=== PATIENT | female | born 1985 | race Caucasian/White ===

== ENCOUNTER 2016-07-31 13:12 | Emergency (ER) | payer OTHER ==
[~2016-07-31] VITALS: Ht 165.1 cm; Wt 50.0 kg
[~2016-07-31 13:12] MED LIST changes: -ASPI325T39 PO
[2016-07-31 13:22] VITALS: TEMP 36.5; Ht 165.1 cm; Wt 50.0 kg
[2016-07-31] MEDS ORDERED: SODIUM CHLORIDE 0.9% 1000ML 1,000 ML IV STA (14:10)
[2016-07-31 14:28] VITALS: O2SAT 100
--- NOTE | 2016-07-31 14:48 | DIAGNOSTIC IMAGING REPORT ---
CHEST ONE VIEW PORTABLE HISTORY: Atypical chest pain. Palpitations. COMPARISON: Chest 12/04/2015. FINDINGS: The lungs are clear. Cardiac silhouette is normal in size. No pleural effusions. No pneumothorax. IMPRESSION: No acute process. Electronically signed by: Tashi Duran M.D. 07/31/2016 2:47 PM Dictated Date/Time: 07/31/2016 2:42 PM
[2016-07-31 15:08] LABS: URINE APPEARANCE CLEAR (CLEAR); URINE BILIRUBIN NEG (NEG); URINE COLOR YELLOW; URINE NITRITE NEG (NEG); URINE PH 8.5 (4.5-7.5); URINE SPECIFIC GRAVITY 1.006 (1.000-1.030); UROBILINOGEN NEG (NEG); ZZUR CULT IF INDIC CLEAN CATCH NO
[2016-07-31 15:10] LABS: MANUAL MICROSCOPIC REQUIRED? NO; REVIEW REQ? NO
[2016-07-31 15:11] LABS: BASO % 0.3 %; BASO ABS # 0.03 K/uL (0-0.2); COMPLETE YES; EOS % 0.1 %; HEMATOCRIT 42.9 % (37-47); IG% 0.2 %; LYMPH % 17.3 %; LYMPH ABS # 1.73 K/uL (1.2-3.4); MEAN CORPUSCULAR HEMOGLOBIN 29.7 pg (25-34); MEAN CORPUSCULAR HGB CONC 34.5 g/dl (32-36); MEAN PLATELET VOLUME 10.3 fL (7.4-10.4); MONO % 5.3 %; NEUT % 76.8 %; PLATELET COUNT 234 K/uL (130-400); RED BLOOD COUNT 4.99 M/uL (4.2-5.4)
[2016-07-31] MEDS ORDERED: ASPI325T39 PO (15:11)
[2016-07-31 15:31] LABS: ALT/SGPT 19 U/L (12-78); BLOOD UREA NITROGEN 11 mg/dl (7-18); BUN/CREATININE RATIO 14.8 (10-20); CALCIUM 9.3 mg/dl (8.5-10.1); CARBON DIOXIDE 24 mmol/L (21-32); CHLORIDE 106 mmol/L (98-107); CREATININE 0.75 mg/dl (0.60-1.20); GLUCOSE 100 mg/dl (70-99); MAGNESIUM 1.9 mg/dl (1.8-2.4); POTASSIUM 3.6 mmol/L (3.5-5.1); SODIUM 142 mmol/L (136-145)
[2016-07-31 15:35] LABS: PROTHROMBIN TIME (PATIENT) 10.5 SECONDS (9.0-12.0)
[2016-07-31 15:41] LABS: ALB/GLOB RATIO 1.3 (0.9-2); ALKALINE PHOSPHATASE 59 U/L (45-117); AST/SGOT 17 U/L (15-37)
[2016-07-31 16:33] LABS: BENZODIAZEPINE, URINE NEG (NEG); COCAINE,URINE NEG (NEG); PHENCYCLIDINE, URINE NEG (NEG)
[2016-07-31 16:37] VITALS: BP 119/84; PULSE 107; O2SAT 98
--- NOTE | 2016-07-31 17:19 | EMERGENCY ROOM VISIT NOTE ---
History First contact with patient: 13:51 Chief Complaint: ANXIETY Stated Complaint: CHEST DISCOMFORT/PALPITATIONS History of Present Illness The patient is a 31 year old female who presents to the Emergency Department via EMS for evaluation of chest pain or palpitations and near syncope. She reports that she's had ongoing issues with palpitations and pain occasionally to the LEFT-sided chest. She reports that she was evaluated by her primary care provider as well as pulmonology. She had pulmonary function testing performed as well as a chest x-ray which were unremarkable. This was back in December of this past year. She was on anti-anxiety medication, but has not been on his medications for the last 6 months. She reports that she was feeling well today until she developed palpitations and lightheadedness. She felt as though she was going to pass out. She laid down, however her symptoms do not resolve. She contacted her and then elected to call 911. She reports that she has had occasional episode of tightness in her chest as well as palpitations. The near syncope is new. She reports she is uncertain if this is related to anxiety or not. She denies any recent substance abuse, alcohol use, or other new medications. She denies any recent caffeine use. The patient reports some mild chest tightness rating her pain a 2/10. She reports no smoking history. She denies recent long distress. She does not use control. There is no family history of blood clots or bleeding disorders. Review of Systems A complete 10-point Review of Systems was discussed with the patient, with pertinent positives and negatives listed in the History of Present Illness. All remaining Review of Systems questions can be considered negative unless otherwise specified. Social History Smoking Status: Former Smoker Alcohol Use: occasionally Drug Use: none Marital Status: Housing Status: lives with significant other Occupation Status: employed Current/Historical Medications Miscellaneous Medications Aspirin (Aspirin Ec), 325 MG PO Allergies Coded Allergies: Bacitracin (Verified Allergy, Unknown, Itchy Rash, 07/31/16) Dust (Verified Allergy, Unknown, Watery Eyes, Achey, Chilly, 07/31/16) Neomycin (Verified Allergy, Unknown, Itchy Rash, 07/31/16) Polymyxin B (Verified Allergy, Unknown, Itchy Rash, 07/31/16) Physical Exam Vital Signs Date Time Temp Pulse Resp B/P Pulse Ox O2 Delivery O2 Flow Rate FiO2 07/31/16 16:37 92 124/62 98 100 122/81 107 119/84 07/31/16 14:37 82 123/72 100 108 131/75 120 128/85 07/31/16 14:28 100 07/31/16 13:29 89 07/31/16 13:22 36.5 105 17 143/75 100 Room Air Pain Rating (0-10): 2 Physical Exam VITAL SIGNS - Vital signs and nursing notes were reviewed. GENERAL - 31-year-old female appearing her stated age who is in no acute distress. Communicates well with provider and answers questions appropriately. HEAD - NC/AT. EYES - PERRL with EOMI bilaterally. Sclera anicteric. Palpebral conjunctiva pink and moist with no injection noted. EARS - No deformities of external structures noted on gross examination bilaterally. No pain elicited with palpation of the tragus bilaterally. External auditory canals without discharge or otorrhea. Tympanic membranes pearly chapman without retraction or bulging. NOSE - Midline and without cyanosis. No epistaxis or purulent drainage noted. Septum midline without deviation or septal hematoma noted. MOUTH/OROPHARYNX - Without perioral cyanosis. Buccal mucosa pink and moist and without leukoplakia. Tongue midline with equal elevation of palate bilaterally. No tonsillar hypertrophy, erythema, or exudates noted. Good dentition noted. NECK - Neck with FROM. Supple to palpation. LUNGS - Chest wall symmetric without accessory muscle use, intercostals retractions, or central cyanosis. Normal vesicular breath sounds CTA B/L. No wheezes, rales, or rhonchi appreciated. CARDIAC - RRR with S1/S2. No murmur, rubs, or gallops appreciated. No reproducible tenderness to palpation appreciated over the anterior chest wall. ABDOMEN - Abdominal contour flat and without pulsations or visible masses. BS normoactive all four quadrants. No tenderness, palpable masses, hepatosplenomegaly, or ascites noted. EXTREMITIES - No clubbing or peripheral cyanosis. No pretibial edema present. +3 /5 radial and dorsalis pedis pulses palpated throughout. +5/5 strength noted in UE/LE bilaterally. NEUROLOGIC - Cranial nerves II through XII grossly intact. Sensory intact to light touch throughout. PSYCH - A&Ox3 and cooperates fully with examiner. Pt is very pleasant and interacts well with examiner. Medical Decision & Procedures ER Provider Diagnostic Interpretation: Radiological imaging and reports were reviewed by myself. Radiologist's Interpretation as follows: CHEST ONE VIEW PORTABLE HISTORY: Atypical chest pain. Palpitations. COMPARISON: Chest 12/04/2015. FINDINGS: The lungs are clear. Cardiac silhouette is normal in size. No pleural effusions. No pneumothorax. IMPRESSION: No acute process. Laboratory Results 07/31/16 14:40 Red Blood Count 4.99, Mean Corpuscular Volume 86.0, Mean Corpuscular Hemoglobin 29.7, Mean Corpuscular Hemoglobin Concent 34.5, Mean Platelet Volume 10.3, Neutrophils (%) (Auto) 76.8, Lymphocytes (%) (Auto) 17.3, Monocytes (%) (Auto) 5.3, Eosinophils (%) (Auto) 0.1, Basophils (%) (Auto) 0.3, Neutrophils # (Auto) 7.68, Lymphocytes # (Auto) 1.73, Monocytes # (Auto) 0.53, Eosinophils # (Auto) 0.01, Basophils # (Auto) 0.03 07/31/16 14:40 Test 07/31/16 14:30 07/31/16 14:40 Urine Color YELLOW Urine Appearance CLEAR (CLEAR) Urine pH 8.5 (4.5-7.5) Urine Specific Crockett 1.006 (1.000-1.030) Urine Protein NEG (NEG) Urine Glucose (UA) NEG (NEG) Urine Ketones NEG (NEG) Urine Occult Blood NEG (NEG) Urine Nitrite NEG (NEG) Urine Bilirubin NEG (NEG) Urine Urobilinogen NEG (NEG) Urine Leukocyte Esterase NEG (NEG) Urine Test NEG (NEG) Urine Opiates Screen NEG (NEG) Urine Methadone, Qualitative NEG (NEG) Urine Barbiturates NEG (NEG) Urine Phencyclidine (PCP) Level NEG (NEG) Ur Amphetamine/Methamphetamine NEG (NEG) MDMA (Ecstasy) Screen NEG (NEG) Urine Benzodiazepines Screen NEG (NEG) Urine Cocaine Metabolite NEG (NEG) Urine Marijuana (THC) NEG (NEG) White Blood Count 10.00 K/uL (4.8-10.8) Red Blood Count 4.99 M/uL (4.2-5.4) Hemoglobin 14.8 g/dL (12.0-16.0) Hematocrit 42.9 % (37-47) Mean Corpuscular Volume 86.0 fL (80-100) Mean Corpuscular Hemoglobin 29.7 pg (25-34) Mean Corpuscular Hemoglobin Concent 34.5 g/dl (32-36) Platelet Count 234 K/uL (130-400) Mean Platelet Volume 10.3 fL (7.4-10.4) Neutrophils (%) (Auto) 76.8 % Lymphocytes (%) (Auto) 17.3 % Monocytes (%) (Auto) 5.3 % Eosinophils (%) (Auto) 0.1 % Basophils (%) (Auto) 0.3 % Neutrophils # (Auto) 7.68 K/uL (1.4-6.5) Lymphocytes # (Auto) 1.73 K/uL (1.2-3.4) Monocytes # (Auto) 0.53 K/uL (0.11-0.59) Eosinophils # (Auto) 0.01 K/uL (0-0.5) Basophils # (Auto) 0.03 K/uL (0-0.2) RDW Standard Deviation 40.3 fL (36.4-46.3) RDW Coefficient of Variation 12.8 % (11.5-14.5) Immature Granulocyte % (Auto) 0.2 % Immature Granulocyte # (Auto) 0.02 K/uL (0.00-0.02) Prothrombin Time 10.5 SECONDS (9.0-12.0) Prothromb Time International Ratio 1.0 (0.9-1.1) Activated Partial Thromboplast Time 25.3 SECONDS (21.0-31.0) Partial Thromboplastin Ratio 1.0 Anion Gap 12.0 mmol/L (3-11) Est Creatinine Clear Calc Drug Dose 85.0 ml/min Estimated GFR () 122.2 Estimated GFR (Non- 105.5 BUN/Creatinine Ratio 14.8 (10-20) Calcium Level 9.3 mg/dl (8.5-10.1) Magnesium Level 1.9 mg/dl (1.8-2.4) Total Bilirubin 0.4 mg/dl (0.2-1) Aspartate Amino Transf (AST/SGOT) 17 U/L (15-37) Alanine Aminotransferase (ALT/SGPT) 19 U/L (12-78) Alkaline Phosphatase 59 U/L (45-117) Total Creatine Kinase 71 U/L (26-192) Creatine Kinase MB < 0.5 ng/ml (0.5-3.6) Creatine Kinase MB Ratio (0-3.0) Total Protein 8.1 gm/dl (6.4-8.2) Albumin 4.6 gm/dl (3.4-5.0) Globulin 3.5 gm/dl (2.5-4.0) Albumin/Globulin Ratio 1.3 (0.9-2) Lipase 271 U/L (73-393) Thyroid Stimulating Hormone (TSH) 2.080 uIu/ml (0.300-4.500) Medications Administered Medications (Trade) Dose Ordered Sig/Cesar Route Start Time Stop Time Status Last Admin Dose Admin Sodium Chloride (Nss 1000ml) 1,000 ml @ 125 mls/hr Q8H STAT IV 07/31/16 14:10 07/31/16 18:02 DC 07/31/16 14:10 125 MLS/HR Procedure Patient was placed on the sign letterer and monitored throughout the entire extent of their stay. In addition, the patient's pulse oximetry was monitored throughout the entire stay. Any abnormalities or aberrancies were addressed appropriately. ECG Indication: syncope Rate (beats per minute): 91 Rhythm: normal sinus Findings: nonspecific-ST abn (Inferior), prolonged QT, no ectopy Comparison ECG Date: Repeat EKG at 16:[address] changes inferiorly and laterally. ED Course Patient was seen and evaluated by myself. Labs were drawn, saline lock in place. The patient was hydrated with a 1000 mL normal saline bolus. Chest x- ray was obtained. Orthostatic vital signs were obtained prior to hydration. The patient did have a moderate increase in her heart rate with changes in position. She did feel lightheaded as well. Laboratory results demonstrate no acute leukocytosis, worrisome anemia, or bandemia. The patient has no significant electrolyte abnormalities. Cardiac enzymes are negative. Troponin is negative. Patient is not . Urine tox screen is negative. D-dimer was not elevated. Her EKG did show some mild nonspecific ST depression in the inferior leads. A repeat EKG appeared to be the same. There is no comparison. On repeat orthostatic vital signs, her symptoms did improve. I did discuss the case with Dr. King of cardiology. It was felt best that the patient replaced for a Holter monitor for evaluation over the next 24 hours. Patient was educated on this. She felt this was best. She was offered admission if she was not comfort with this. She did feel that this was the best treatment this point. The patient was educated on worrisome symptoms for return visit to the emergency department. Patient discharged home in good condition. Medical Decision Given the patient's presentation and stated complaints, I did elect to perform the above-mentioned workup. The patient presents today with palpitations and near syncope. She does report a history of palpitations as well as tightness in her chest. Her pain is not pleuritic. She has no risk factors for PE. Her d-dimer is negative. Cardiac enzymes are negative. Interestingly, the patient does have some mild ST depression in inferior leads. In consultation with cardiology, it was agreed upon that the patient likely would be best suited for a Holter monitor. She was discharged to the cardiopulmonary lab for Holter monitor placement. She will follow-up with cardiology from today's visit or return for any changing/worsening symptoms. Patient discharged home in good condition. In the evaluation and treatment of this patient, the following differential diagnoses were considered: PA, ASC, Dysrhythmia, Angina, Mediastinitis, GERD, Esophagitis, PE, Pneumonia, Bronchitis, Costochondritis, Rib Fracture, Zoster. Impression Primary Impression: Palpitations Additional Impression: Pre-syncope Departure Information Dispostion Home / Self-Care Condition GOOD Referrals Daphney Davidson D.O. (PCP) Jayro King M.D. Patient Instructions ED Palpitations, My [facility] Additional Instructions You have been treated in the Emergency Department for your Palpitations and Near Syncope. Please go immediately to the Main entrance of the hospital to be seen by the cardiopulmonary lab to have a 24-hour Holter monitor placed. For pain control, you can use the following [id number] medicines (if >12 yo): - Regular strength (325mg/tab) Tylenol (acetaminophen) 2 tabs every 4-6 hours as needed. Do not exceed 12 tablets in a 24 hour period. Avoid taking more than 4 grams (4000 mg) of Tylenol per day. This includes any other sources of acetaminophen you may take on a regular basis. - Regular strength (200 mg/tab) Advil (ibuprofen) 1-2 tabs every 4-6 hours as needed. Do not exceed a dose of 3200 mg per day. You should schedule a follow-up appointment with your Primary Care Provider in 2 -3 days for further evaluation from today's Emergency Department visit. Return to the Emergency Department if your current symptoms worsen despite treatment course outlined above, or if you develop any of the following symptoms : worsening chest pain, associated jaw/arm pain, nausea, dizziness, shortness of breath, bloody cough, or fainting. Problem Qualifiers
== END 2016-07-31 17:31 | disposition home or self-care (01) ==
LOC: EDBD 13:12 → C.EDC 13:13
DX: R00.2 Palpitations (principal); R55 Syncope and collapse

== ENCOUNTER → 2016-07-31 | Outpatient (CLI) | payer OTHER ==
[~2016-07-31] MED LIST: ASPI325T39 PO; BUPROPION PO; Ibuprofen PO; Imitrex PO; Loratadine PO; Luvox PO; MULTIVITAMIN PO; Strattera PO; Vitamin D3 PO; Vitamin b12 PO
--- NOTE | 2016-08-02 23:56 | HOLTER SCAN ---
This is a good quality recording of 24 hours' duration. The rhythm was sinus throughout with a normal heart rate variation and a minimum of 48 beats per minute, a maximum of 130 beats per minute and an average of 71 beats per minute. There was 1 premature ventricular beat and 2 premature supraventricular beats. There were symptoms of chest pain noted as well as heart palpitations, there were no arrhythmias or other abnormalities identified at these times.
== END | disposition home or self-care (01) ==
LOC: C.CPL 17:42
PROVIDERS: ATTEND Emergency Medicine
DX: R00.2 Palpitations (principal); R55 Syncope and collapse

== ENCOUNTER → 2016-08-29 | Outpatient (CLI) | payer OTHER ==
[~2016-08-29] MED LIST changes: +ASPI325T39 PO; -BUPROPION PO; -Ibuprofen PO; -Imitrex PO; -Loratadine PO; -Luvox PO; -MULTIVITAMIN PO; -Strattera PO; -Vitamin D3 PO; -Vitamin b12 PO
--- NOTE | 2016-08-29 17:30 | ECHOCARDIOGRAM REPORT ---
*NOTICE TO RECEIVING REPUBLICAN AGENCY This information is strictly Confidential and protected under [place] law. [place] law prohibits you from making any further disclosure of this information unless further disclosure is expressly permitted by the written consent of the person to whom it pertains or is authorized by law. A general authorization for the release of medical or other information is not sufficient for this purpose. Hospital accepts no responsibility if the information is made available to any other person, INCLUDING THE PATIENT. Interpretation Summary * Name: HAYLEY GUTIERREZ Study Date: 08/29/2016 02:26 PM BP: 118/50 mmHg * Patient Location: [facility] [place] HR: 79 * : 1985 (M/d/yyyy) Gender: Female Height: 65 in * Age: 31 yrs Ethnicity: [place] Weight: 112 lb * Ordering Physician: Daphney Davidson * Referring Physician: Daphney Davidson D.O. * Performed By: Shonda Liu * * Reason For Study: PALPITATIONS * BSA: 1.5 m2 * -- Conclusions -- * 1. Normal LV size and wall thickenss. * 2. Normal LV systolic function. LVEF 65-70%. No regional wall motion abnormalities. * 3. Normal RV size and function. * 4. No significant valvular pathology. * 5. No prior studies for comparison. Procedure Details * A complete two-dimensional transthoracic echocardiogram was performed (2D, M-mode, Doppler and color flow Doppler). Left Ventricle * The left ventricle is grossly normal size. * There is normal left ventricular wall thickness. * Ejection Fraction = 65-70%. Right Ventricle * The right ventricle is grossly normal size. * The right ventricular systolic function is normal as assessed by tricuspid annular plane systolic excursion (TAPSE) (normal >1.5 cm). Atria * The left atrial size is normal. * Right atrial size is normal. * No ASD detected; PFO is not assessed. Mitral Valve * The mitral valve is grossly normal. * There is no mitral valve stenosis. * Significant mitral regurgitation is absent. Tricuspid Valve * The tricuspid valve is not well visualized, but is grossly normal. * Tricuspid stenosis is absent. * Significant tricuspid regurgitation is absent. Aortic Valve * The aortic valve opens well. * The aortic valve is trileaflet. * No hemodynamically significant valvular aortic stenosis. * There is no significant aortic regurgitation. Pulmonic Valve * The pulmonary valve is inadequately visualized, but the Doppler data is adequate for interpretation. * There is no pulmonic valvular stenosis. * Trace pulmonic valvular regurgitation. Great Vessels * The aortic root and proximal ascending aorta are normal sized. Pericardium/Pleural * There is no pericardial effusion. Great Vessels * Normal inferior vena cava size and collapsability with sniff indicates a normal right atrial pressure of 3 mmHg MMode 2D Measurements and Calculations IVSd 0.80 cm IVSs 0.97 cm LVIDd 4.7 cm LVIDs 2.8 cm LVPWd 0.61 cm LVPWs 1.6 cm IVS/LVPW 1.3 FS 41.3 % EDV(Teich) 101.7 ml ESV(Teich) 28.3 ml EF(Teich) 72.2 % EDV(cubed) 103.0 ml ESV(cubed) 20.8 ml EF(cubed) 79.8 % % IVS thick 20.6 % % LVPW thick 161.5 % LV mass(C)d 103.8 grams LV mass(C)dI 67.1 grams/m\S\2 LV mass(C)s 108.4 grams LV mass(C)sI 70.1 grams/m\S\2 CO(Teich) 5.7 l/min CI(Teich) 3.7 l/min/m\S\2 SV(Teich) 73.4 ml SI(Teich) 47.5 ml/m\S\2 CO(cubed) 6.4 l/min CI(cubed) 4.1 l/min/m\S\2 SV(cubed) 82.1 ml SI(cubed) 53.1 ml/m\S\2 ACS 1.4 cm LA dimension 3.1 cm asc Aorta Diam 2.2 cm LVOT diam 1.6 cm LVOT area 2.0 cm\S\2 LVAd ap4 25.2 cm\S\2 LVLd ap4 7.2 cm EDV(MOD-sp4) 75.0 ml LVAs ap4 11.9 cm\S\2 LVLs ap4 5.6 cm ESV(MOD-sp4) 22.0 ml EF(MOD-sp4) 70.7 % LVAd ap2 22.9 cm\S\2 LVLd ap2 7.1 cm EDV(MOD-sp2) 63.0 ml LVAs ap2 11.1 cm\S\2 LVLs ap2 5.6 cm ESV(MOD-sp2) 19.0 ml EF(MOD-sp2) 69.8 % CO(MOD-sp4) 4.1 l/min CI(MOD-sp4) 2.7 l/min/m\S\2 SV(MOD-sp4) 53.0 ml SI(MOD-sp4) 34.3 ml/m\S\2 CO(MOD-sp2) 3.4 l/min CI(MOD-sp2) 2.2 l/min/m\S\2 SV(MOD-sp2) 44.0 ml SI(MOD-sp2) 28.5 ml/m\S\2 Doppler Measurements and Calculations MV E max stacie 83.4 cm/sec MV A max stacie 70.6 cm/sec MV E/A 1.2 MV dec time 0.19 sec Ao V2 max 135.7 cm/sec Ao max PG 7.4 mmHg Ao max PG (full) 4.2 mmHg WILMER(V,A) 1.3 cm\S\2 WILMER(V,D) 1.3 cm\S\2 LV V1 max PG 3.2 mmHg LV V1 max 88.8 cm/sec PA V2 max 87.9 cm/sec PA max PG 3.1 mmHg PI end-d stacie 113.2 cm/sec
== END | disposition home or self-care (01) ==
LOC: C.CPL 14:11
PROVIDERS: ATTEND Family Medicine
DX: R00.2 Palpitations (principal)

== ENCOUNTER → 2017-08-15 | Outpatient (CLI) | payer OTHER ==
--- NOTE | 2017-08-15 09:47 | DIAGNOSTIC IMAGING REPORT ---
ABDOMEN COMPLETE (US) HISTORY: Pain ABNORMAL UTERINE BLEEDING,ABD PAIN. COMPARISON: None. FINDINGS: Pancreas: The pancreas demonstrates a normal echotexture. Liver: Unremarkable. Gallbladder: No gallbladder wall thickening. No gallstones. CBD: 3 mm Kidneys: No hydronephrosis. Spleen: Normal in size. Aorta: Normal in caliber. IVC: Patent. IMPRESSION: No significant abnormality identified within the within the abdomen. The above report was generated using voice recognition software. It may contain grammatical, syntax or spelling errors. Electronically signed by: Bernard Elizabeth M.D. 08/15/2017 9:46 AM Dictated Date/Time: 08/15/2017 9:45 AM
--- NOTE | 2017-08-15 09:49 | DIAGNOSTIC IMAGING REPORT ---
PELVIC COMPLETE NON OB CLINICAL HISTORY: ABNORMAL UTERINE BLEEDING,ABD PAIN COMPARISON STUDY: None FINDINGS: The uterus measured 7.9 cm. The endometrial stripe measured 9 mm. The right ovary measured 2.3 cm maximum dimension with normal vascular flow. The left ovary measured 2.9 cm with normal vascular flow. There is no ultrasonographic evidence of ovarian torsion. It should be noted that ovarian torsion can be present with normal Doppler ultrasonographic findings. There was no evidence of pathologic free pelvic fluid. IMPRESSION: Normal study. The above report was generated using voice recognition software. It may contain grammatical, syntax or spelling errors. Electronically signed by: Bernard Elizabeth M.D. 08/15/2017 9:47 AM Dictated Date/Time: 08/15/2017 9:46 AM
== END | disposition home or self-care (01) ==
LOC: C.ULTR 08:32
PROVIDERS: ATTEND Family Medicine
DX: R10.2 Pelvic and perineal pain (principal); R10.30 Lower abdominal pain, unspecified; N93.9 Abnormal uterine and vaginal bleeding, unspecified

== ENCOUNTER → 2017-10-01 | Outpatient (CLI) | payer OTHER ==
[2017-10-01 12:33] LABS: LUTEINIZING HORMONE 7.53 IU/L
[2017-10-01 12:34] LABS: FOLLICLE STIMULAT HORMONE 6.74 IU/L
== END | disposition home or self-care (01) ==
LOC: C.LAB1850 09:55
PROVIDERS: ATTEND Obstetrics & Gynecology
DX: N93.9 Abnormal uterine and vaginal bleeding, unspecified (principal)